=== PATIENT | male | born 1990 | race African-American/Black ===

== ENCOUNTER 2020-03-11 10:55 | Emergency (ER) | payer SELFPAY ==
[~2020-03-11] VITALS: Ht 175.3 cm; Wt 123.0 kg
[2020-03-11] MEDS ORDERED: KETOROLAC 15 MG/ML VIAL. IVP ONE (11:15)
[2020-03-11] MEDS ORDERED: METOCLOPRAMIDE HCL 10 MG/2 ML VIAL. IVP ONE (11:15)
[2020-03-11] MEDS ORDERED: IV NORMAL SALINE 1000ML BAG 1,000 ML IV ONE (11:15)
[2020-03-11 11:28] LABS: BASO % 1 % (0-3); EOS % 0 % (0-3); HEMATOCRIT 43.4 % (39.0-53.0); HEMOGLOBIN 14.8 g/dL (13.0-17.5); LYMPH # 0.7 x10^3/uL (1.0-4.8); LYMPH % 19 % (24-48); MEAN CORPUSCULAR HEMOGLOBIN 27 pg (25-35); MEAN CORPUSCULAR HGB CONC 34 g/dL (31-37); MEAN CORPUSCULAR VOLUME 78 fL (79-100); MONO # 0.4 x10^3/uL (0.0-1.1); MONO % 12 % (0-9); NEUT # 2.4 x10^3/uL (1.8-7.7); NEUT % 68 % (31-73); PLATELET COUNT 160 x10^3/uL (140-400); RED CELL DISTRIBUTION WIDTH 13.7 % (11.5-14.5); WHITE BLOOD COUNT 3.5 x10^3/uL (4.0-11.0)
[2020-03-11 11:31] LABS: BILIRUBIN,URINE NEGATIVE (NEG); CLARITY,URINE CLEAR; COLOR,URINE YELLOW; NITRITE,URINE NEGATIVE (NEG); PH,URINE 5.5 (<5.0-8.0); PROTEIN,URINE 30 mg/dL (NEG-TRACE); UROBILINOGEN,URINE 0.2 mg/dL (0.2 mg/dL)
[2020-03-11 11:33] LABS: CALCIUM 8.2 mg/dL (8.5-10.1); CREATININE 0.9 mg/dL (0.7-1.3); GFR 119.9; POTASSIUM 3.8 mmol/L (3.5-5.1)
[2020-03-11 11:38] LABS: ALBUMIN 3.6 g/dL (3.4-5.0); ALBUMIN/GLOBULIN RATIO 0.8 (1.0-1.7); MAGNESIUM 1.5 mg/dL (1.8-2.4); TOTAL BILIRUBIN 0.3 mg/dL (0.2-1.0); TOTAL PROTEIN 8.1 g/dL (6.4-8.2)
[2020-03-11] MEDS ORDERED: INSULIN REGULAR 100 UNIT/ML 3ML VIAL. SQ ONE (11:45)
[2020-03-11 11:47] LABS: BACTERIA,URINE 0 /HPF (0-FEW); RBC,URINE 0 /HPF (0-2); SQUAMOUS EPITHELIAL CELL,UR FEW /LPF; WBC,URINE OCC /HPF (0-4)
--- NOTE | 2020-03-11 12:23 | RAD ---
Chest PA and lateral 03/11/2020. Reason for exam: Malaise. No infiltrate or effusion is seen. Heart size and pulmonary vascularity appear normal. IMPRESSION: No acute abnormality. Electronically signed by: Suhail Ann Jr., MD (03/11/2020 12:20 PM) [id number]
--- NOTE | 2020-03-11 12:45 | RAD ---
CT abdomen and pelvis without contrast 03/11/2020. Reason for exam: Bilateral flank pain, right worse than left. Helical noncontrast images were performed. Exposure: One or more of the following individualized dose reduction techniques were utilized for this examination: 1. Automated exposure control 2. Adjustment of the mA and/or kV according to patient size 3. Use of iterative reconstruction technique. FINDINGS: There is mild dependent atelectasis in the right lower lobe. The lung bases otherwise are clear. The liver and spleen are homogeneous in density and normal in configuration. Evaluation of the solid organs is limited without IV contrast. The kidneys show relatively dense renal pyramids without clear-cut calculi. No mass or obstruction is seen. The adrenal glands are not enlarged. The pancreas appears normal. No retroperitoneal or mesenteric adenopathy is seen. There is no apparent abdominal mass or clearcut inflammatory process. The appendix is somewhat thickened through its mid segment, with diameter up to about 11 mm. There are some internal high attenuation structures. The cecal and and tip of the appendix did not appear dilated, and there is no obvious adjacent inflammation. Images through the pelvis show no apparent distal ureteral stone or obstruction. No pelvic or inguinal adenopathy is seen. There is no separate pelvic mass or inflammatory process. IMPRESSION: No apparent renal or ureteral stone. The mid segment of the appendix appears dilated, but there are no other findings suggesting appendicitis. Electronically signed by: Suhail Ann Jr., MD (03/11/2020 12:42 PM) [id number]
[2020-03-11 13:00] VITALS: BP 137/85
--- NOTE | 2020-03-11 13:26 | PHYS DOC ---
Past Medical History Past Medical History: Diabetes-Type II, Hypertension Past Surgical History: No Surgical History Smoking Status: Never Smoker Alcohol Use: Occasionally Drug Use: Marijuana General Adult EDM: Chief Complaint: FLANK PAIN HPI: HPI: Patient is a 29-year-old male presents with bilateral flank pain with associated nausea that started 3 days ago. Patient reports vomiting x1 yesterday. Patient also reports some associated headache. Denies neck pain. Denies fever or chills. Denies known trauma. Patient reports increased fatigue. Reports recent travel to [place] 1.5 weeks ago. Denies known direct exposure to COVID-19. Review of Systems: Review of Systems: Constitutional: Denies fever or chills; reports fatigue Eyes: Denies redness or eye pain HENT: Denies nasal congestion or sore throat Respiratory: Denies cough or shortness of breath Cardiovascular: Denies chest pain or palpitations GI: Denies abdominal pain; reports nausea and vomiting : Denies dysuria or hematuria Musculoskeletal: Reports bilateral flank pain; denies neck pain Integument: Denies rash or skin lesions Neurologic: Reports headache; denies focal weakness or sensory changes Complete systems were reviewed and found to be within normal limits, except as documented in this note. Current Medications: Current Medications Medications (Trade) Dose Ordered Sig/Manfred Start Time Stop Time Status Last Admin Dose Admin Insulin Human Regular (HumuLIN R VIAL) 12 unit 1X ONCE 03/11/20 11:45 03/11/20 11:47 DC 03/11/20 12:14 12 UNIT Ketorolac Tromethamine (Toradol 15mg Vial) 15 mg 1X ONCE 03/11/20 11:15 03/11/20 11:16 DC 03/11/20 11:41 15 MG Metoclopramide HCl (Reglan Vial) 10 mg 1X ONCE 03/11/20 11:15 03/11/20 11:16 DC 03/11/20 11:41 10 MG Sodium Chloride 1,000 ml @ 1,000 mls/hr 1X ONCE 03/11/20 11:15 03/11/20 12:14 DC 03/11/20 11:41 1,000 MLS/HR Allergies: Allergies: Allergies Coded Allergies Type Severity Reaction Last Updated Verified No Known Drug Allergies 03/12/16 No Physical Exam: PE: Constitutional: Well developed, well nourished, no acute distress, non-toxic appearance HENT: Normocephalic, atraumatic Eyes: PERRL, EOMI, conjunctiva normal, no discharge, no nystagmus noted Neck: Normal range of motion, no tenderness, supple, no meningeal signs Lungs & Thorax: No respiratory distress, equal chest rise and fall Abdomen: Soft, no tenderness, no guarding/rebound tenderness/distention Skin: Warm, dry, no erythema, no rash Back: No tenderness, bilateral CVA tenderness Extremities: No tenderness, ROM intact, no edema Neurologic: Alert and oriented X 3, motor and sensory functions intact, no focal deficits noted Psychologic: Affect normal, judgment normal Current Patient Data: Labs: Laboratory Tests Test 03/11/20 11:00 03/11/20 11:15 Urine Collection Type Unknown Urine Color Yellow Urine Clarity Clear Urine pH 5.5 (<5.0-8.0) Urine Specific [place] >=1.030 (1.000-1.030) Urine Protein 30 mg/dL (NEG-TRACE) Urine Glucose (UA) >=1000 mg/dL (NEG) Urine Ketones (Stick) >=80 mg/dL (NEG) Urine Blood Negative (NEG) Urine Nitrite Negative (NEG) Urine Bilirubin Negative (NEG) Urine Urobilinogen Dipstick 0.2 mg/dL (0.2 mg/dL) Urine Leukocyte Esterase Negative (NEG) Urine RBC 0 /HPF (0-2) Urine WBC Occ /HPF (0-4) Urine Squamous Epithelial Cells Few /LPF Urine Bacteria 0 /HPF (0-FEW) Urine Mucus Slight /LPF White Blood Count 3.5 x10^3/uL (4.0-11.0) L Red Blood Count 5.60 x10^6/uL (4.30-5.70) Hemoglobin 14.8 g/dL (13.0-17.5) Hematocrit 43.4 % (39.0-53.0) Mean Corpuscular Volume 78 fL (79-100) L Mean Corpuscular Hemoglobin 27 pg (25-35) Mean Corpuscular Hemoglobin Concent 34 g/dL (31-37) Red Cell Distribution Width 13.7 % (11.5-14.5) Platelet Count 160 x10^3/uL (140-400) Neutrophils (%) (Auto) 68 % (31-73) Lymphocytes (%) (Auto) 19 % (24-48) L Monocytes (%) (Auto) 12 % (0-9) H Eosinophils (%) (Auto) 0 % (0-3) Basophils (%) (Auto) 1 % (0-3) Neutrophils # (Auto) 2.4 x10^3/uL (1.8-7.7) Lymphocytes # (Auto) 0.7 x10^3/uL (1.0-4.8) L Monocytes # (Auto) 0.4 x10^3/uL (0.0-1.1) Eosinophils # (Auto) 0.0 x10^3/uL (0.0-0.7) Basophils # (Auto) 0.0 x10^3/uL (0.0-0.2) Sodium Level 130 mmol/L (136-145) L Potassium Level 3.8 mmol/L (3.5-5.1) Chloride Level 94 mmol/L (98-107) L Carbon Dioxide Level 24 mmol/L (21-32) Anion Gap 12 (6-14) Blood Urea Nitrogen 8 mg/dL (8-26) Creatinine 0.9 mg/dL (0.7-1.3) Estimated GFR (Cockcroft-Gault) 119.9 BUN/Creatinine Ratio 9 (6-20) Glucose Level 310 mg/dL (70-99) H Calcium Level 8.2 mg/dL (8.5-10.1) L Magnesium Level 1.5 mg/dL (1.8-2.4) L Total Bilirubin 0.3 mg/dL (0.2-1.0) Aspartate Amino Transferase (AST) 15 U/L (15-37) Alanine Aminotransferase (ALT) 23 U/L (16-63) Alkaline Phosphatase 103 U/L (46-116) Total Protein 8.1 g/dL (6.4-8.2) Albumin 3.6 g/dL (3.4-5.0) Albumin/Globulin Ratio 0.8 (1.0-1.7) L Lipase 123 U/L (73-393) Acetone Level Neg (NEG) Laboratory Tests 03/11/20 11:15 Laboratory Tests 03/11/20 11:15 Vital Signs: Vital Signs Date Time Temp Pulse Resp B/P (MAP) Pulse Ox O2 Delivery O2 Flow Rate FiO2 03/11/20 11:00 99.1 82 18 156/112 (127) 99 Room Air 99.1 EKG: EKG: [] Radiology/Procedures: Radiology/Procedures: PROCEDURE: CHEST PA & LATERAL Chest PA and lateral 03/11/2020. Reason for exam: Malaise. No infiltrate or effusion is seen. Heart size and pulmonary vascularity appear normal. IMPRESSION: No acute abnormality. Electronically signed by: Suhail Ann Jr., MD (03/11/2020 12:20 PM) [id number] PROCEDURE: CT ABDOMEN PELVIS WO CONTRAST CT abdomen and pelvis without contrast 03/11/2020. Reason for exam: Bilateral flank pain, right worse than left. Helical noncontrast images were performed. Exposure: One or more of the following individualized dose reduction techniques were utilized for this examination: 1. Automated exposure control 2. Adjustment of the mA and/or kV according to patient size 3. Use of iterative reconstruction technique. FINDINGS: There is mild dependent atelectasis in the right lower lobe. The lung bases otherwise are clear. The liver and spleen are homogeneous in density and normal in configuration. Evaluation of the solid organs is limited without IV contrast. The kidneys show relatively dense renal pyramids without clear-cut calculi. No mass or obstruction is seen. The adrenal glands are not enlarged. The pancreas appears normal. No retroperitoneal or mesenteric adenopathy is seen. There is no apparent abdominal mass or clearcut inflammatory process. The appendix is somewhat thickened through its mid segment, with diameter up to about 11 mm. There are some internal high attenuation structures. The cecal and and tip of the appendix did not appear dilated, and there is no obvious adjacent inflammation. Images through the pelvis show no apparent distal ureteral stone or obstruction. No pelvic or inguinal adenopathy is seen. There is no separate pelvic mass or inflammatory process. IMPRESSION: No apparent renal or ureteral stone. The mid segment of the appendix appears dilated, but there are no other findings suggesting appendicitis. Electronically signed by: Suhail Ann Jr., MD (03/11/2020 12:42 PM) Course & Med Decision Making: Course & Med Decision Making Pertinent Labs and Imaging studies reviewed. (See chart for details) Patient presents with report of bilateral flank pain with associated nausea and vomiting. Pain elicited on palpation of bilateral CVA region. Pain/nausea addressed. IV fluid hydration given. UA without signs of infection. Hyperglyc emia noted and addressed. CT abdomen/pelvis without acute process. Chest x-ray clear. Patient stable for discharge with outpatient follow-up with PCP. Discussed findings and plan with patient, who acknowledges understanding and agreement. Gabi Disclaimer: Gabi Disclaimer: This electronic medical record was generated, in whole or in part, using a voice recognition dictation system. Departure Departure Impression: Primary Impression: Flank pain Additional Impressions: Headache Qualified Codes: R51 - Headache Hyperglycemia Disposition: HOME, SELF-CARE Condition: STABLE Referrals: UNKNOWN PCP NAME (PCP) Patient Instructions: Diet - 2000 Calorie Diabetic, Flank Pain, [id number], Headache, FAQs, Hyperglycemia, [id number] Additional Instructions: Increase fluid hydration. Take over the counter Ibuprofen and/or Tylenol as needed for pain or discomfort. Please take your diabetes medication as previously prescribed. Please obtain a family physician to further monitor and adjust your medications as needed. Justicifation of Admission Dx: Justifications for Admission: Justification of Admission Dx: N/A INA WEBER DO Mar 11, 2020 13:26
== END 2020-03-11 13:40 | disposition home or self-care (01) ==
LOC: ER 10:55
DX: R10.9 Unspecified abdominal pain (principal); R51 Headache; E11.65 Type 2 diabetes mellitus with hyperglycemia; I10 Essential (primary) hypertension
CPT/HCPCS: 36415; 71046; 74176; 80053; 81001; 82010; 83690; 83735; 85025; 96361; 96372; 96374; 96375; 99285; J1815; J1885; J2765; J7030